=== PATIENT | female | born 1945 | race Caucasian/White ===

== ENCOUNTER 2021-10-27 19:38 | Emergency (ER) | payer BC ==
[~2021-10-27] VITALS: Ht 152.4 cm; Wt 61.2 kg
[~2021-10-27 19:38] MED LIST: ACETAMINOPHEN 500 MG TABLET PO ONE; METOCLOPRAMIDE HCL 10 MG/2 ML VIAL IVP ONE; NACL 0.9% 1,000 ML IV ONE
[2021-10-27 20:09] VITALS: BP_SYST 119
--- NOTE | 2021-10-27 20:17 | NUR ---
Patient triaged and placed in waiting room. VSS and patient appears in no acute distress at this time. Accompanied by boyfriend, awaiting available bed, and MD notified of need for MSE.
--- NOTE | 2021-10-27 21:44 | NUR ---
BIB AMB WITH [employer] REPAIRER AND FAMILY FRIEND. C/O BURGESS AND N/V X 1 DAY. PAIN LEVAL 03/02
--- NOTE | 2021-10-27 21:45 | NUR ---
Patient ambulatory to bed 2 for evaluation and treatment
[2021-10-27] MEDS ORDERED: ACETAMINOPHEN 500 MG TABLET ONE (23:32)
[2021-10-27] MEDS ORDERED: METOCLOPRAMIDE HCL 10 MG/2 ML VIAL ONE (23:32)
--- NOTE | 2021-10-27 23:42 | NUR ---
PT EXAM/ EVAL BY DR. AMNE. MEDS GIVEN PER ERMD ORDERS/ EMAR. PT PLACED IN POSTION OF COMFORT. VSS. PAIN LEVAL 10/10. LESS NAUSEA. CONTINUED MONITORING.
[2021-10-27 23:43] LABS: BASOPHILS % (AUTO) 0.2 % (0.0-2.0); HEMATOCRIT 40.2 % (36-48); HEMOGLOBIN 13.9 g/dL (12.0-16.0); LYMPHOCYTES # (AUTO) 0.3 K/uL (1.0-5.5); LYMPHOCYTES % (AUTO) 5.9 % (20.5-51.5); MEAN CORPUSCULAR HEMOGLOBIN 32 pg (27-31); MEAN CORPUSCULAR HGB CONC 35 % (32-36); MEAN CORPUSCULAR VOLUME 92 fL (79.0-98.0); MONOCYTES # (AUTO) 0.5 K/uL (0.0-1.0); MONOCYTES % (AUTO) 9.8 % (1.7-9.3); NEUTROPHILS # (AUTO) 4.4 K/uL (1.8-7.7); NEUTROPHILS % (AUTO) 84.1 % (40.0-70.0); PLATELET COUNT (AUTO) 170 K/uL (130-430); RED BLOOD CELL COUNT(AUTO) 4.39 MIL/uL (4.2-6.2); RED CELL DISTRIBUTION WIDTH 14.1 % (9.0-15.0); WHITE BLOOD COUNT (AUTO) 5.3 K/uL (4.8-10.8)
[2021-10-27 23:54] LABS: ANION GAP 6 (5-15); CALCIUM 8.5 mg/dL (8.4-11.0); CHLORIDE 105 mmol/L (98-107); CREATININE 0.85 mg/dL (0.55-1.30); GLUCOSE 133 mg/dL (70-99); POTASSIUM 3.9 mmol/L (3.5-5.1); SODIUM SERUM 137 mmol/L (136-145); UREA NITROGEN, BLOOD 13 mg/dL (8-21)
[2021-10-28] MEDS ORDERED: KETOROLAC TROMETHAMINE 15 MG VIAL IVP ONE
[2021-10-28 00:01] LABS: ALANINE AMINOTRANSFERASE 10 U/L (12-78); ALBUMIN 3.5 g/dL (3.4-4.8); ASPARTATE AMINOTRANSFERASE 18 U/L (10-37); LIPASE 47 U/L (73-393); TOTAL BILIRUBIN 0.5 mg/dL (0.0-1.0)
--- NOTE | 2021-10-28 04:17 | NUR ---
NO UA OBTAINED AT THIS TIME, PT ENCOURAGE FOR UA SAMPLE, WATER PROVIDED PO
[2021-10-28 06:26] VITALS: BP_SYST 112
--- NOTE | 2021-10-28 06:28 | NUR ---
PT STABLE FOR D/C TO HOME WITH FAMILY FRIEND DONNY MCKEON. [phone]. TO LOBBY AMB WITH ALL PAPERWORK IN HAND. PT AND FRIEND VERBALIZE UNDERSTANDING OF AAFTERCARE.
== END 2021-10-28 06:26 | disposition home or self-care (01) ==
LOC: SED 19:38
DX: G43.909 Migraine, unspecified, not intractable, without status migrainosus (principal); R11.0 Nausea; I10 Essential (primary) hypertension; Z79.899 Other long term (current) drug therapy
CPT/HCPCS: 99284; 96374; 96361; 96375; 80053; 83690; 85025; 85651; 36415; 70450; 76376; J1885; J2765; J7030